=== PATIENT | female | born 1990 | race Caucasian/White ===

== ENCOUNTER 2021-09-01 16:57 | Emergency (ER) | payer MEDICAID ==
[~2021-09-01] VITALS: Ht 170.2 cm; Wt 58.1 kg
[2021-09-01 17:00] VITALS: BP 142/97
--- NOTE | 2021-09-01 17:12 | NUR ---
PT AMB TO BED 12.
--- NOTE | 2021-09-01 17:45 | NUR ---
31/F BIB SELF WITH C/O BURNING UPON URINATION AND BLOOD IN URINE. PT STATES SHE WAS RECENTLY DIAGNOSED WITH UTI AND GIVEN RX OF CIPRO AND STATES SHE CONTINUED TO HAVE HEMATURIA AND UTI SYMPTOMS THROUGHOUT USING THE ANTIBIOTICS AND AFTER SHE COMPLETED THE COURSE. PATIENT IS REPORTING 5/10 PAIN RADIATING TOWARDS BACK AND HIPS. PATIENT ALSO REPORTS VAGINAL ITCHING AND DISCHARGE, STATING SHE WAS RECENTLY DIAGNOSED WITH HPV. PT DENIES SOB, CP, N/V/D, FEVER, OR CHILLS.
[2021-09-01] MEDS ORDERED: atenoloL 25 MG TAB PO ONE (17:55)
[2021-09-01] MEDS ORDERED: ATEN50TA2 PO (18:06)
[2021-09-01] MEDS ORDERED: IBUP-2213 PO (18:06)
[2021-09-01] MEDS ORDERED: SULF-59 PO (18:06)
--- NOTE | 2021-09-01 18:46 | NUR ---
PATIENT LEFT FACILITY WITHOUT DISCHARGE WORK OR INSTRUCTIONS.
== END 2021-09-01 18:46 | disposition home or self-care (01) ==
LOC: MED 16:57
DX: N39.0 Urinary tract infection, site not specified (principal); R31.9 Hematuria, unspecified; F17.200 Nicotine dependence, unspecified, uncomplicated; M79.10 Myalgia, unspecified site
CPT/HCPCS: 81002; 81025; 87086; 99283